=== PATIENT | male | born 1985 | race Two or more races ===

== ENCOUNTER 2019-11-20 17:24 | Emergency (ER) | payer MEDICAID ==
[~2019-11-20] VITALS: Ht 170.2 cm; Wt 83.9 kg
--- NOTE | 2019-11-20 17:35 | NUR ---
PT AMBULATORY TO ER BED 09 C/O VISUAL DISTURBANCE, BLURRING OF VISION TO BOTH EYES AT AROUND 1600 THAT SO FAR ALREADY RESOLVE. PT ALSO C/O RUE PARESTHESIA. DENIES ANY OTHER COMPLAINTS. GOWNED AND PLACED ON MONITOR. STABLE VITALS. AWAITING MD RAMIREZ.
--- NOTE | 2019-11-20 17:42 | NUR ---
DR WOODS AT BEDSIDE FOR EVAL.
--- NOTE | 2019-11-20 17:47 | NUR ---
PT TO RADIOLOGY FOR HEAD CT SCAN VIA [facility]
[2019-11-20] MEDS ORDERED: IBUPROFEN 600 MG TABLET PO ONE ×2 (17:51→18:00)
--- NOTE | 2019-11-20 18:57 | NUR ---
Patient discharged to home in stable condition. Written and verbal after care instructions given. Patient verbalizes understanding of instruction. Pt ambulatory with a steady gait
[2019-11-20 18:58] VITALS: BP 143/78
== END 2019-11-20 18:58 | disposition home or self-care (01) ==
LOC: ER 17:28
DX: G43.809 Other migraine, not intractable, without status migrainosus (principal)
CPT/HCPCS: 70450-TC

== ENCOUNTER 2020-06-05 18:19 | Emergency (ER) | payer BC, MEDICAID ==
[~2020-06-05] VITALS: Ht 172.7 cm; Wt 83.0 kg
[2020-06-05 18:51] VITALS: BP 152/56
--- NOTE | 2020-06-05 18:55 | NUR ---
cough, with pain on inspiration- to ER for evaluation and treatment. He got tested for COVID 2 weeks ago with negative results.
== END 2020-06-05 20:10 | disposition home or self-care (01) ==
LOC: ER 18:22
DX: R05 Cough (principal); R07.1 Chest pain on breathing; Z20.828 Contact with and (suspected) exposure to other viral communicable diseases
CPT/HCPCS: 71045; 99284; C9803; U0003

== ENCOUNTER 2022-06-24 01:49 | Emergency (ER) | payer BC, MEDICAID, OTHER ==
[~2022-06-24] VITALS: Ht 172.7 cm; Wt 83.9 kg
[2022-06-24 02:04] VITALS: BP 152/84
--- NOTE | 2022-06-24 02:05 | NUR ---
Note: The ER physician originally ordered dexamethasone 10 mg to be given as IV piggyback over 30 minutes. However, we did discussion by the primary care nurse to the ER physician-having we carry Decadron 5 mg tablet in the [employer]. The ER physician-Dr. Mast -told NISREEN Gutierrez to give Decadron 10 mg p.o. x1, instead of the dexamethasone 10 mg to be given IV piggyback.
[2022-06-24] MEDS ORDERED: DEXAMETHASONE SOLN 5 MG/5 ML UDC ONE (02:08)
--- NOTE | 2022-06-24 02:15 | NUR ---
Patient discharged to home in stable condition. Written and verbal after care instructions given. Patient verbalizes understanding of instruction.
[2022-06-24] MEDS ORDERED: DEXAMETHASONE SOD PHOSPHATE 10 MG in IV D5W 50 ML IV ONE (02:30)
== END 2022-06-24 02:15 | disposition home or self-care (01) ==
LOC: ER 01:52
DX: J02.8 Acute pharyngitis due to other specified organisms (principal)
CPT/HCPCS: 99283; J8540; J1100; J7060